=== PATIENT | female | born 1945 | race Caucasian/White ===

== ENCOUNTER 2020-03-27 15:57 | Observation (INO) ==
[2020-03-27 16:16] LABS: Urine Appearance Clear (CLEAR); Urine Bilirubin Negative (NEGATIVE); Urine Blood Negative /ul (NEGATIVE); Urine Color Yellow; Urine Ketone Negative (NEGATIVE)
[2020-03-27 16:17] LABS: Urine Bacteria None Seen; Urine Nitrite Negative (NEGATIVE); Urine Protein Negative (NEGATIVE); Urine RBC None Seen /hpf (0-5); Urine Urobilinogen Normal (NORMAL); Urine WBC None Seen /hpf (0-5); Urine pH 5.5 pH (5.0-7.0)
--- NOTE | 2020-03-27 16:28 | ERNOTE ---
Medical Problem HPI - General Chief Complaint: General Assessment Time Seen by Provider: 03/27/20 16:12 Source: patient, family Exam Limitations: no limitations - Immun/Allergies/Home Medications Immunizations: IMMUNIZATION HX Immunizations Up to Date Yes History of Influenza Vaccine Yes Hx Pneumococcal Vaccination Yes Allergies/Adverse Reactions: Allergies No Known Allergies Allergy (Unverified 03/27/20 16:35) - History of Present History Narrative: Patient is coming to the ER for sudden onset of confusion and amnesia. She lives and doctors in [place]. She and her had come down to [facility] for a discussion with their son, apparently there were and some stressful issues that needed to be discussed. states around 3:00 after the conversation the patient suddenly repeatedly asked what day it was, was unable to remember her grandchildren's names or dates. She denies any headache, denies any injury, denies numbness, weakness, vision changes, changes in her speech. She has a history of hypertension, not sure what medication she is on. She is very active per her with scrapbooking, cooking, and multiple other activities. states that she is otherwise very sharp and would have remembered all those things this morning Review of Systems - Review of Systems Constitutional: Absent: recent illness, fever EYE: Absent: vision changes ENT: Absent: nose congestion, sore throat Respiratory: Absent: shortness of breath Cardiology: Absent: chest pain Gastrointestinal/Abdominal: Absent: nausea, vomiting Genitourinary: Absent: frequency, dysuria Musculoskeletal: Absent: back pain Neurological: Present: See HPI. Absent: headache Medical History (Last Updated 03/27/20 @ 16:34 by Madalyn Moran) Cataract Hypertension Surgical History: Surgical History (Last Updated 03/27/20 @ 16:34 by Madalyn Moran) History of tonsillectomy Physical Exam - Physical Exam General Appearance: Present: wd/wn, alert, no apparent distress, obese Head Exam: Present: normal inspection, no evidence of injury Eye Exam: Normal inspection: bilateral, PERRL: bilateral, EOMI: bilateral Ears, Nose, Throat: Present: normal ENT inspection, normal pharynx Neck: Present: normal inspection, nontender Respiratory: Present: no respiratory distress, normal breath sounds, no accessory muscle use, chest nontender, lungs clear Cardiovascular/Chest: Present: regular rate, rhythm, no murmur Gastrointestinal/Abdominal: Present: normal bowel sounds, nontender Extremity Exam: Present: no edema Neurological Exam: Present: alert, oriented, normal mood/affect, no motor/sensory deficits, street engineer II-XII nml as tested, normal cerebellar test, disoriented to time - Does not know the date or recent holiday, disoriented to situation - Does not remember details of recent events, nor was she was prior to coming here. Absent: disoriented to person, disoriented to place Skin Exam: Present: normal color, warm/dry Progress - Results and Orders Patient's Lab Results:: I have reviewed the patient's lab results. - Vital Signs Patient's Vital Signs:: I have reviewed the patient's vital signs. Vital Signs: Vital Signs 03/27/20 16:02 Temperature 35.9 C L Pulse Rate 90 Respiratory Rate 16 Blood Pressure 160/85 H O2 Sat by Pulse Oximetry 96 - EKG EKG #1 EKG: NSR, other - poor R progression over anterior leads, no acute changes EKG read: Interp. by me - X-Ray X-Ray #1 X-Ray: chest - no acute changes Interpretation: Reviewed by me - CT/Ultrasound CT/Ultrasound Narrative: CT head: no acute changes - Progress/Reassessment Chief Complaint: General Assessment Progress Note-Subjective: 03/27/20 17:16 discussed test results with patient and , patient denies any symptoms at this time, she is still unable to remember the year, does not know who the president is, does not know what she did last night or this afternoon, no what she ate Discussed that her symptoms are most consistent with a stress reaction to the difficult conversation she had with her son and [id number], though a stroke is not 100% ruled out. Discussed getting admitted for observation and possibly getting an MRI in the morning versus going home. Patient has been decided on getting admitted here 03/27/20 17:17 discussed with mora Pinzon to admit for observation and order MRI for the morning Departure Clinical Impression: Amnesia - Departure Disposition: Still a patient Condition: Stable
[2020-03-27 16:42] LABS: Hematocrit 47.1 % (37.0-47.0); Mean Cell Volume 95.3 fl (78-100); Mean Corpuscular Hemoglobin 30.4 pg (27-31); Mean Corpuscular Hgb Conc 31.8 g/dl (32-36); Mean Platelet Volume 10.4 fl (8-12.5); Neutrophil # 5.4 K/mm3 (1.3-6.0); Neutrophil % 55.6 % (42-75.0); Platelet Count 242 K/mm3 (150-450); Red Blood Count 4.94 M/mm3 (4.2-5.4); Red Cell Distribution Width 13.2 % (11.5-14.0); White Blood Count 9.8 K/mm3 (4.0-10.5)
[2020-03-27 16:57] LABS: ALT 32 U/L (19-67); AST 25 U/L (0-48); Albumin * 3.9 gm/dl (3.4-5.0); Alkaline Phosphatase * 81 U/L (50-170); Anion Gap 15.2 mmol/L (6.8-13.8); BUN/Creatinine Ratio 14.1 (9.0-21.6); Bilirubin, Total 0.2 mg/dL (0.0-1.1); Blood Urea Nitrogen 13 mg/dL (3-23); Ca. Corrected For Albumin 9.3 mg/dL (8.4-10.2); Calcium * 9.5 mg/dL (7.9-10.9); Carbon Dioxide 25.9 mmol/L (24-32.6); Chloride 104 mmol/L (97-106); Glucose * 121 mg/dL (70-110); Potassium 4.1 mmol/L (3.4-4.6); Sodium 141 mmol/L (132-142); Total Protein 7.4 gm/dL (6.2-8.2)
--- NOTE | 2020-03-27 21:38 | HP ---
Chief Complaint - Chief Complaint Date of Service: 03/27/20 Time of Service: 21:37 Chief Complaint: Memory Loss History of Present Illness: Eloise is a 74 yo female brought to the [facility] ER by her after having an acute episode of amnesia. This was shortly after having a serious family conversation about alcohol abuse. She does not recall anything about today. She reports living in [place] and currently knows she is at [facility] but she does not know how or why. She does not remember visiting family in town but assumes that is why she would be here. 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 Her past medical history is difficult as she does not remember medical history other than high blood pressure and does not remember what medications she takes. Medical History (Last Updated 03/27/20 @ 16:34 by Madalyn Moran) Cataract Hypertension Surgical History: Surgical History (Last Updated 03/27/20 @ 18:36 by Chata Sidhu RN) History of colon resection History of tonsillectomy Family History: Family History (Last Updated 03/27/20 @ 18:38 by Chata Sidhu RN) Mother Diverticula of intestine Father Lung cancer Social History: (Last Updated 03/27/20 @ 18:46 by Chata Sidhu RN) Social History: adopted: No foster care: No daycare: no daycare long-term: No Marital status: lives independently: Yes household members: spouse number of children: 3 number of grandchildren: 9 caregiver/support person: Yes caregiver/support person comment: parent marital status: current occupational status: retired 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 Highest education level completed: Associate degree: occupat Financial difficulty paying for basics: not very hard Service: No Tobacco: Smoking Status: Never smoker Smoking risk assessment performed?: No Alcohol: alcohol intake frequency: holiday/special occasion counseling given: No Substance Use: substance use type: does not use Dietary Habits: caffeine: Yes Type: other eating out: 1-3 times/week Pets: pets and animals: cat(s), dog(s) Macarena/Latter Day: macarena/confucianist: Pentecostal special macarena needs: No agree to transfusion: No Safety: seatbelt use: always Personal Safety: do you feel safe at home: Yes Review Of Systems (GEN) - Review of Systems Generalized/Overall Review: Absent: Weakness, Chills, Fever Respiratory: Absent: Cough, Shortness of Breath Cardiac: Present: Chest Pain. Absent: Edema Abdominal: Absent: Nausea, Vomiting Genitourinary: Absent: Burning, Frequency Musculoskeletal: Present: Joint Pain. Absent: Back Pain Neurological: Present: Headache. Absent: Weakness Skin: Absent: Lesions, Lumps Endocrine: Present: Increased Thirst. Absent: Excessive Sweating Immunizations: IMMUNIZATION HX Immunizations Up to Date Yes History of Influenza Vaccine Yes Hx Pneumococcal Vaccination Yes Allergies/Adverse Reactions: Allergies Allergy/AdvReac Type Severity Reaction Status Date / Time No Known Allergies Allergy Unverified 03/27/20 16:35 Exam - Exam Vital Signs: Vital Signs - Last Taken Temp 36.7 C 03/27/20 17:57 Pulse 85 03/27/20 17:57 Resp 20 03/27/20 17:57 BP 154/80 H 03/27/20 17:57 Pulse Ox 96 03/27/20 17:57 Constitutional: Present: Alert, Other - oriented to person and place Eye Exam: bilateral eye: normal inspection Neck: Present: full range of motion, normal inspection Respiratory: Present: lungs clear, normal breath sounds, no respiratory distress Cardiovascular/Chest: Present: regular rate, rhythm, no edema Peripheral Pulses: radial (R): 2+, radial (L): 2+ Abdomen: Present: Normal bowel sounds, soft, nontender Extremity: Present: normal inspection Skin Exam: Present: normal color, warm/dry, no cyanosis Lymphatic: Present: no adenopathy Neurologic: Present: expediter service order II-XII nml as tested, no motor/sensory deficits, alert, normal mood/affect, other - Unable to remember the number 7 each time to perform serial 7s and unable to recall 3 objects after distraction, otherwise did MMSE well Appearance: Present: appropriate appearance, appropriate insight Eye contact: Present: cooperative, good eye contact, normal speech Thoughts: Present: normal thought pattern, no apparent hallucination Diagnostic Studies: Abnormal Lab Results 03/27/20 03/27/20 Range/Units 16:37 16:37 Hct 47.1 H (37.0-47.0) % MCHC 31.8 L (32-36) g/dl Anion Gap 15.2 H (6.8-13.8) mmol/L Random Glucose 121 H (70-110) mg/dL Laboratory Results WBC 9.8 K/mm3 (4.0-10.5) 03/27/20 16:37 RBC 4.94 M/mm3 (4.2-5.4) 03/27/20 16:37 Hgb 15.0 gm/dL (12.5-16.0) 03/27/20 16:37 Hct 47.1 % (37.0-47.0) H 03/27/20 16:37 MCV 95.3 fl (78-100) 03/27/20 16:37 MCH 30.4 pg (27-31) 03/27/20 16:37 MCHC 31.8 g/dl (32-36) L 03/27/20 16:37 RDW 13.2 % (11.5-14.0) 03/27/20 16:37 Plt Count 242 K/mm3 (150-450) 03/27/20 16:37 MPV 10.4 fl (8-12.5) 03/27/20 16:37 Immature Gran % (Auto) 0.30 % (0.001-0.429) 03/27/20 16:37 Immature Gran # (Auto) 0.03 K/mm3 (0.000-0.0310) 03/27/20 16:37 Neutrophils % 55.6 % (42-75.0) 03/27/20 16:37 Lymphocytes % 35.7 % (20-51) 03/27/20 16:37 Monocytes % 7.0 % (0.0-9) 03/27/20 16:37 Eosinophils % 1.1 % (0.0-3.0) 03/27/20 16:37 Basophils % 0.3 % (0.0-1.0) 03/27/20 16:37 Nucleated RBC % 0.0 k/mm3 (0-1) 03/27/20 16:37 Neutrophils # 5.4 K/mm3 (1.3-6.0) 03/27/20 16:37 Lymphocytes # 3.49 k/mm3 (1.5-3.5) 03/27/20 16:37 Monocytes # 0.7 k/mm3 (0.0-1.0) 03/27/20 16:37 Eosinophils # 0.1 k/mm3 (0.0-0.7) 03/27/20 16:37 Absolute Basophils 0.0 k/mm3 (0.0-0.1) 03/27/20 16:37 Sodium 141 mmol/L (132-142) 03/27/20 16:37 Plasma Sodium 141 mmol/L (130-142) 03/27/20 16:37 Potassium 4.1 mmol/L (3.4-4.6) 03/27/20 16:37 Chloride 104 mmol/L (97-106) 03/27/20 16:37 Carbon Dioxide 25.9 mmol/L (24-32.6) 03/27/20 16:37 Anion Gap 15.2 mmol/L (6.8-13.8) H 03/27/20 16:37 BUN 13 mg/dL (3-23) 03/27/20 16:37 Creatinine 0.92 mg/dL (0.4-1.4) 03/27/20 16:37 Est GFR (Non-Af Amer) 63 mL/min (60-130) 03/27/20 16:37 BUN/Creatinine Ratio 14.1 (9.0-21.6) 03/27/20 16:37 Random Glucose 121 mg/dL (70-110) H 03/27/20 16:37 Calcium 9.5 mg/dL (7.9-10.9) 03/27/20 16:37 Calcium Adj for Albumin 9.3 mg/dL (8.4-10.2) 03/27/20 16:37 Total Bilirubin 0.2 mg/dL (0.0-1.1) 03/27/20 16:37 AST 25 U/L (0-48) 03/27/20 16:37 ALT 32 U/L (19-67) 03/27/20 16:37 Alkaline Phosphatase 81 U/L (50-170) 03/27/20 16:37 C-Reactive Prot, Quant Less than 0.2 mg/dL (0.0-0.9) 03/27/20 16:37 Total Protein 7.4 gm/dL (6.2-8.2) 03/27/20 16:37 Albumin 3.9 gm/dl (3.4-5.0) 03/27/20 16:37 Urine Color Yellow 03/27/20 16:10 Urine Appearance Clear (CLEAR) 03/27/20 16:10 Urine pH 5.5 pH (5.0-7.0) 03/27/20 16:10 Ur Specific [place] 1.030 SP.GR. (1.005-1.010) 03/27/20 16:10 Urine Protein Negative mg/dL (NEGATIVE) 03/27/20 16:10 Urine Glucose (UA) Negative mg/dL (NEGATIVE) 03/27/20 16:10 Urine Ketones Negative mg/dL (NEGATIVE) 03/27/20 16:10 Urine Blood Negative /ul (NEGATIVE) 03/27/20 16:10 Urine Nitrate Negative (NEGATIVE) 03/27/20 16:10 Urine Bilirubin Negative mg/dl (NEGATIVE) 03/27/20 16:10 Urine Urobilinogen Normal EU/dl (NORMAL) 03/27/20 16:10 Ur Leukocyte Esterase Negative /ul (NEGATIVE) 03/27/20 16:10 Urine RBC None seen /hpf (0-5) 03/27/20 16:10 Urine WBC None seen /hpf (0-5) 03/27/20 16:10 Ur Epithelial Cells None seen /hpf (0-5) 03/27/20 16:10 Urine Bacteria None seen (NONE) 03/27/20 16:10 Urine Culture Comments No culture indicated 03/27/20 16:10 Assessment/Plan - Narrative Narrative: Eloise will be admitted for amnesia of unknown etiology. No abnormalities on labs or head CT. Will plan to get brain MRI in the morning and monitor in observation overnight. It is possible that she has had a stroke or this could be transient global amnesia secondary to some stress reaction. - Assessment/Plan (1) Amnesia Problem: Acute
--- NOTE | 2020-03-28 13:55 | DS ---
(1) Transient global amnesia Problem: Acute (2) Stress reaction Problem: Acute Date of Discharge:: 03/28/20 Hospital Course: Eloise is a 74 yo female admitted due to amnesia. This occurred after a stressful situation with her family. She was evaluated with labs, head CT, and brain MRI and all are normal. Her memory gradually returned, although still a little unclear about yesterdays events. Those too should gradually return. I believe it was from a severe stress reaction. I do not recommend any medication change. She should take it easy and avoid stress for the time being. She may follow up with her primary care provider. Procedures Performed: none Results and Findings: Lab Pending Results 03/27/20 16:10: Urine Color Yellow, Urine Appearance Clear, Urine pH 5.5, Ur Specific [place] 1.030, Urine Protein Negative, Urine Glucose (UA) Negative, Urine Ketones Negative, Urine Blood Negative, Urine Nitrate Negative, Urine Bilirubin Negative, Urine Urobilinogen Normal, Ur Leukocyte Esterase Negative, Urine RBC None seen, Urine WBC None seen, Ur Epithelial Cells None seen, Urine Bacteria None seen, Urine Culture Comments No culture indicated 03/27/20 16:37: WBC 9.8, RBC 4.94, Hgb 15.0, Hct 47.1 H, MCV 95.3, MCH 30.4, MCHC 31.8 L, RDW 13.2, Plt Count 242, MPV 10.4, Immature Gran % (Auto) 0.30, Immature Gran # (Auto) 0.03, Neutrophils % 55.6, Lymphocytes % 35.7, Monocytes % 7.0, Eosinophils % 1.1, Basophils % 0.3, Nucleated RBC % 0.0, Neutrophils # 5.4, Lymphocytes # 3.49, Monocytes # 0.7, Eosinophils # 0.1, Absolute Basophils 0.0 03/27/20 16:37: Sodium 141, Plasma Sodium 141, Potassium 4.1, Chloride 104, Carbon Dioxide 25.9, Anion Gap 15.2 H, BUN 13, Creatinine 0.92, Est GFR (Non-Af Amer) 63, BUN/Creatinine Ratio 14.1, Random Glucose 121 H, Calcium 9.5, Calcium Adj for Albumin 9.3, Total Bilirubin 0.2, AST 25, ALT 32, Alkaline Phosphatase 81, C-Reactive Prot, Quant Less than 0.2, Total Protein 7.4, Albumin 3.9 Discharge Location: Home Disposition: Home self-care Condition: Good Discharge Activity: Activity as tolerated Discharge Diet: General/regular food Referrals: Edison Lewis MD [Primary Care Provider] - One Week Problem Oriented Discharge Instructions to Patient/Family: Transient Global Amnesia
[2020-03-28 15:39] VITALS: BP 137/76
== END 2020-03-28 15:24 | disposition home or self-care (01) ==
LOC: MS 15:57 → ER 15:57
PROVIDERS: ADMIT Family Medicine; ATTEND Family Medicine
CPT/HCPCS: 36415; 70450; 70553; 71020; 71046; 80053; 81001; 85025; 86140; 93005; 99283; 99284; A9576; G0378